=== PATIENT | female | born 2000 | race Caucasian/White ===

== ENCOUNTER 2021-04-10 22:00 | Emergency (ER) | payer OTHER ==
[2021-04-10 22:37] VITALS: BP 144/93; PULSE 122; TEMP 101.7; BMI 31.1
== END 2021-04-10 22:47 | disposition home or self-care (01) ==
LOC: FER 22:00
DX: J02.9 Acute pharyngitis, unspecified (principal)
CPT/HCPCS: 36415; 86308; 99283-25

== ENCOUNTER 2024-09-01 11:11 | Day surgery (SDC) | payer OTHER ==
[2024-08-24 15:41] VITALS: BMI 32.9
[2024-09-01 13:17] VITALS: RESP 16; TEMP 97.3
[2024-09-01 13:32] VITALS: BP 126/71; PULSE 82
== END 2024-09-01 13:41 | disposition home or self-care (01) ==
LOC: FASU-ENDO 11:11
PROVIDERS: ATTEND Internal Medicine Gastroenterology
PROC: 0DB68ZX Excision of Stomach, Via Natural or Artificial Opening Endoscopic, Diagnostic (ICD-10-PCS; 2024-09-01)
PROC: 0DB48ZX Excision of Esophagogastric Junction, Via Natural or Artificial Opening Endoscopic, Diagnostic (ICD-10-PCS; 2024-09-01)
PROC: 0DB98ZX Excision of Duodenum, Via Natural or Artificial Opening Endoscopic, Diagnostic (ICD-10-PCS; principal; 2024-09-01 12:46)
DX: K29.50 Unspecified chronic gastritis without bleeding (principal); K20.90 Esophagitis, unspecified without bleeding; K44.9 Diaphragmatic hernia without obstruction or gangrene; R10.13 Epigastric pain
CPT/HCPCS: 81025; 88305-TC; 88342-TC